=== PATIENT | male | born 1965 | race Caucasian/White ===

== ENCOUNTER 2021-09-24 12:34 | Emergency (ER) | payer BC ==
[2021-09-24] VITALS (10 sets, daily range): BP systolic 135–159; BP diastolic 93–109
[~2021-09-24] VITALS: Ht 172.7 cm; Wt 100.0 kg
[~2021-09-24 12:34] MED LIST: BLOOD PRESSURE; EFFEXOR; NEXIUM20 M1 PO
[2021-09-24 14:07] LABS: HEMATOCRIT 31.7 % (39.0-50.0); HEMOGLOBIN 9.2 g/dl (14.0-18.0); IMMATURE GRANULOCYTES 0.3 % (0.0-5.0); MEAN CORPUSCULAR HGB 20.9 pG CALC (26.0-32.0); NEUT# 8.72 thou/uL (1.82-7.42); RED BLOOD COUNT 4.4 mill/uL (4.70-6.10); RED CELL DISTRI WIDTH 16.8 % (11.5-15.5)
[2021-09-24 14:15] LABS: ALBUMIN 3.4 g/dL (3.2-5.0); ALKALINE PHOSPHATASE 79 u/l (38-126); ANION GAP 16 (6-22 (CALC)); BILIRUBIN, TOTAL 0.5 mg/dL (0.0-1.4); BUN 11 mg/dL (9-20); BUN/CREATININE RATIO 15 (12-20 (CALC)); CARBON DIOXIDE 23 mmol/l (22-30); CHLORIDE 103 mmol/l (95-108); CREATININE 0.7 mg/dL (0.7-1.3); GFR > 60 ML/MIN (>=60 (CALC)); GFR FOR AFR.AMER. > 60 ML/MIN (>=60 (CALC)); SGOT/AST 110 u/l (17-59); SODIUM 137 mmol/l (137-146); TOTAL PROTEIN 6.4 g/dL (6.3-8.2)
[2021-09-24] MEDS ORDERED: XANAX0.25 MG PO (17:25)
== END 2021-09-24 17:57 | disposition home or self-care (01) | DRG 880 ==
LOC: ED 12:34
PROVIDERS: Emergency Medicine
DX: F41.9 Anxiety disorder, unspecified (principal); I10 Essential (primary) hypertension; K21.9 Gastro-esophageal reflux disease without esophagitis; F17.200 Nicotine dependence, unspecified, uncomplicated; Z86.16 Personal history of COVID-19

== ENCOUNTER 2023-10-01 08:20 | Observation (INO) | payer BC ==
[2023-10-01] VITALS (8 sets, daily range): BP systolic 108–133; BP diastolic 63–87
[~2023-10-01] VITALS: Ht 172.7 cm; Wt 99.8 kg
[~2023-10-01 08:20] MED LIST changes: +BAYER ASPIRIN E81 MG PO; +COZAAR25 MG PO; +EFFEXOR PO; +HCTZ PO; +OMEPRAZOLE DR40 MG PO; +SPIRONOLACT25 MG PO; +TOPROL XL25 M1 PO; +VIAGRA100 MG PO; +XANAX0.25 MG PO
[2023-10-01] MEDS ORDERED: LACTATED RINGER'S 1,000 ML IV ONE ×2 (08:48→12:36)
[2023-10-01] MEDS ORDERED: ceFAZolin Sodium 2 GM/VIAL SDV ONE (08:48)
[2023-10-01] MEDS ORDERED: SODIUM CHLORIDE 0.9% 100 ML IV ONE (08:48)
[2023-10-01] MEDS ORDERED: FAMOTIDINE 10MG/ML 2ML SDV IV ONE (08:48)
[2023-10-01] MEDS ORDERED: MIDAZOLAM HCL 2 MG/2 ML VIAL ONE (09:14)
[2023-10-01] MEDS ORDERED: PROPOFOL 200 MG/20 ML VIAL IV ONE (09:15)
[2023-10-01] MEDS ORDERED: ONDANSETRON HCl 4 MG/2 ML SDV IV ONE (09:15)
[2023-10-01] MEDS ORDERED: SUCCINYLCHOLINE CHLORIDE 20 MG/ML 10ML VIAL IV ONE (09:15)
[2023-10-01] MEDS ORDERED: GLYCOPYRROLATE 0.2 MG/ML IV ONE (09:15)
[2023-10-01] MEDS ORDERED: LIDOCAINE HCL 2% 2ML SDV IV ONE (09:15)
[2023-10-01] MEDS ORDERED: PHENYLEPHRINE HCL 10 MG/ML VIAL IV ONE (09:15)
[2023-10-01] MEDS ORDERED: KETOROLAC TROMETHAMINE 30 MG/ML SDV IV ONE (09:15)
[2023-10-01] MEDS ORDERED: ROCURONIUM BROMIDE 10 MG/ML 5ML VIAL IV ONE (09:15)
[2023-10-01] MEDS ORDERED: ePHEDrine SULFATE 50 MG/ML AMP IV ONE (09:15)
[2023-10-01] MEDS ORDERED: SUGAMMADEX SODIUM 200 MG/2 ML SDV IV ONE (09:15)
[2023-10-01] MEDS ORDERED: LIDOcaine HCl 1% (Local Anesth.) 20 ML VIAL ONE (09:41)
[2023-10-01] MEDS ORDERED: STERILE WATER FOR IRRIGATION 1,000 ML BTL IR ONE (09:43)
[2023-10-01] MEDS ORDERED: SODIUM CHLORIDE 1,000 ML BTL IR ONE (09:43)
[2023-10-01] MEDS ORDERED: oxyCODONE 5MG/ ACETAMINOPHEN 325MG TAB PO PRN (12:20)
[2023-10-01] MEDS ORDERED: HYDROmorphone HCL 2 MG/AMP IV PRN (12:20)
[2023-10-01] MEDS ORDERED: SIMETHICONE 20 MG/0.3 ML PO PRN (12:20)
[2023-10-01] MEDS ORDERED: DEXTROSE 5% w/NACL 0.45 1,000 ML IV PRN (12:20)
[2023-10-01] MEDS ORDERED: ONDANSETRON HCl 4 MG/2 ML SDV IV PRN (12:20)
--- NOTE | 2023-10-01 13:20 | NUR ---
PT ARRIVED FROM OR VIA STRETCHER WITH STAFF. IV INTACT, DRESSING INTACT, SMALL AMOUNT OF BLEEDING NOTED ON ABD DRESSING. PT IS ON 2 LITERS WITH NC.
[2023-10-01] MEDS ORDERED: LOSARTAN Potassium 25 MG/TAB PO SCH (13:30)
[2023-10-01] MEDS ORDERED: VENLAFAXINE HYDROCHLORIDE 75 MG/CAP PO SCH (13:30)
[2023-10-01] MEDS ORDERED: SPIRONOLACTONE 25 MG/TAB PO SCH (13:30)
[2023-10-01] MEDS ORDERED: hydroCHLOROthiazide 25 MG/TAB PO SCH (13:30)
[2023-10-01] MEDS ORDERED: METOPROLOL SUCCINATE 25 MG/TAB-TOPROL XL PO SCH (13:30)
--- NOTE | 2023-10-01 14:00 | NUR ---
DSPOKE WITH PT DAUGHTER TO GET HISTORY. PT IS AWAKE AND THEN DOSES BACK OFF AGAIN. HR IS REG,PULSES ARE STRONG. LIKE TO DO THINGS ON HIS OWN. CONTINUE TO OBSERVE AND MONITOR.
--- NOTE | 2023-10-01 16:00 | NUR ---
PT IS RESTING IN BED WITH NO DISTRESS NOTED. IV SITE IS FREE FROM REDNESS OR EDEMA.
[2023-10-01] MEDS ORDERED: KETOROLAC TROMETHAMINE 15 MG/ML SDV IV SCH (18:00)
--- NOTE | 2023-10-01 20:35 | NUR ---
PT IN BED WITH EYES CLOSED WITH NO S/S OF DISTRESS NOTED. RESPIRATION EVEN AND NON LABORED. NO BOWEL SOUNDS NOTD AND NO PASSING GAS. PT HAS NOT URINATED SINCE SURGERY DENIES DISCOMFORT. BLADDER ASSESSMENT COMPLETED AND NO DISTRESS AT THIS TIME. SCD ON AND TOLERATING WELL. MEDICATED WITH DILAUDID FOR PAIN AND HELPFUL. CALL LIGHT WITHIN REACH. WILL CONTINUE TO OBSERVE.
[2023-10-02] VITALS (13 sets, daily range): BP systolic 60–145; BP diastolic 35–76
--- NOTE | 2023-10-02 00:22 | NUR ---
PT HAS NOT VODED POST-OP. NEGATIVE BLADDER ASSESSMENT. STATES HE DOES NOT HAVE THE URGE TO URINATE. ATTEMPT TO REPOSITION TO ASSIST IN VOIDING AND DECLINED. BLADDER SCAN 507 ML. WILL NOTIFY MD FOR ORDERS. WILL CONTINUE TO OBSERVE. REFUSING TO KEEP SCD'S ON WELL. EXPLAINED TO PT THEY ARE IN PLACE TO PREVENT CLOTS AND HE STATED HE DID NOT WNAT THEM ON AT THIS TIME. WILL CONTINUE TO OBSERVE.
--- NOTE | 2023-10-02 01:14 | NUR ---
NOTIFIED SUPERVISIOR OF RESIDENT BLADDER SCAN RESULTS AND ALSO DECLINING TO AMBULATE OR POSITION CHANGE FOR ASSIST WITH URINATION. PT IS DENYING COMPLICATIONS AND DENYING PAIN. WILL CONTINUE TO OBSERVE FOR URINATION AND WILL NOTIFY MD OF PT DOES NOT VOID.
--- NOTE | 2023-10-02 04:47 | NUR ---
THIS PRODUCT INSPECTION COORDINATOR WENT INTO PT ROOM TO EVALUATE PAIN AND EVALUATE BLADDER AND VOIDING. WOKE THIS RESIDENT UP AND ASKED ABOUT PAIN AND HE STATED HE WAS IN PAIN AT A 8 ON SCALE OF 1 TO 10. CHECKED PATIENT VITALS AND BLOOD PRESSURE 84/55 IN LEFT ARM AND 82/42 IN RIGHT ARM. MADE PT AWARE THAT I NEEDED TO CALL THE PHYSICIAN REGARDING THE BLOOD PRESSURE BEFORE MEDICATING HIM FOR PAIN. PT BECAME UPSET SAYING THAT HE HAS BEEN CALLING FOR PAIN MEDICATIONS SINCE MIDNIGHT. EXPLAINED TO PATIENT THAT I GAVE HIM TORADOL PRESCRIBED AND i DID TELL HIM TO CALL IF IT WAS NOT EFFECTIVE. BOLUS WAS ADMINISTERED AND WHILE RUNNING CHECK BLOOD PRESSURE AT 108/52. DILAUDID WAS ADMINISTERED PRESCRIBED. WILL CONTINUE TO OBSERVE. SPOKE WITH DAUGHTER AND MADE AWARE OF PLAN OF CARE.
--- NOTE | 2023-10-02 04:55 | NUR ---
THIS TEST MAN INTO SPEAK WITH PT (AT THE NURSES REQUEST R/T PT ANGRILY STATING TO HER THAT SHE IS PAYING GAMES WITH HIM AND REFUSING TO GIVE PAIN MEDICATION) WHO IS UPSET STATING WE HAVE REFUSED TO GIVE HIM PAIN MEDICATION SINCE 8PM LAST NIGHT, PT STATES WE ARE PLAYING GAMES WITH HIM ETC.. ATTEMPTS BY THIS TEST MAN AND HIS NURSE TO EXPLAIN TO HIM THAT HE WAS MEDICATED AT 0010 ORDERED WITH TORADOL, PT NOW STATES "THAT IS NOT PAIN MEDICATION THAT IS AN ANTI INFLAMATORY, I WANT THE PAIN MEDICATION" AGAIN ATTEMPTED TO EXPLAIN THAT TORADOL IS GIVEN FOR PAIN, PT ANGRILY INTERJECTS THAT "THAT ISN'T PAIN MEDICATION AND AGAIN TELLS US THAT TORADOL IS NOT A PAIN MEDICATION THAT IT IS IN AN ANTI-INFAMMATORY, ATTEMPTED TO EXPLAIN THAT TORADOL IS GIVEN FOR PAIN BUT THAT IT DOESN'T CLINICALLY AFFECT HIS B/P LIKE THE DILAUDID WILL, ALL EFFORTS TO DISCUSS AND EXPLAIN CLINICALLY ABOUT NARCOTICS AND LOW B/P GO UNHEARD PT JUST REPEATEDLY STATES HE DOESN'T UNDERSTAND WHY WE ARE REFUSING TO GIVE HIM PAIN MEDICATION". PT THEN STATES "THATS OK WHEN MY DAUGHTER GETS HERE, THINGS WILL CHANGE SHE WILL RAISE THE ROOF" UNABLE TO COMMUNICATE EFFECTIVELY WITH PT, SO NURSE EXPLAINED THAT WE WILL GIVE HIM A BOLUS OF FLUID AND CHECK B/P TO BE ABLE TO ENSURE WE CAN SAFELY ADMINISTER PAIN MEDICATION.
--- NOTE | 2023-10-02 05:12 | NUR ---
ALSO ATTEMPTING TO ASSDESS BLADDER AND TOILET TO URINATE AND PT STATED ONE THING AT A TIME. i EXPLAINED THAT i NEEDED TO ADDRESSTHE CONCERN OF NOT VOIDING. dR. OLMSTEAD WAS MADE AWARE OF PATIENT NOT VOIDING SINCE SURGERY. dECLINED BLADDER SCAN AT THIS TIME STATED HE NEEDED TO DEAL WITH HIS PAIN FIRST. EXPLAINED TO PT THAT DILAUDID WAS GIVEN. WILL CONTINUE TO OBSERVE
--- NOTE | 2023-10-02 05:54 | NUR ---
Recheck blood pressure after administration of diludid and tech bp 60/35. this ad copy writer rechecked bp and 84/44 and 87/35. Dr. Lee was notified and awaiting orders.
[2023-10-02] MEDS ORDERED: SODIUM CHLORIDE 0.9% 1,000 ML IV ONE ×2 (06:00→06:30)
--- NOTE | 2023-10-02 06:00 | NUR ---
Dr. galo gave order to gove 2nd liter bolus and order faxed and noted and bolus given. BP 86/83.
--- NOTE | 2023-10-02 06:16 | NUR ---
DR. VAZQUEZ MADE AWARE OF LOW BLOOD PRESSURES AND ORDERS TO CONTINUE WITH D51/2 NS AT 100 AND HOLD BLOOD PRESSURE MEDICATIONS THIS AM. PATIENT MADE AWARE OF PLAN OF CARE.
[2023-10-02 06:31] LABS: BASO% 0.5 % (0-3); EOS% 4.9 % (0-8); HEMATOCRIT 36.6 % (39.0-50.0); IMMATURE GRANULOCYTES 0.3 % (0.0-5.0); LYMPH% 22.7 % (15-41); MEAN CORPUSCULAR HGB 28.1 pG CALC (26.0-32.0); MEAN CORPUSCULAR HGB CONC 31.1 g/dL CAL (32.0-36.0); MONO% 11.8 % (2-13); NEUT# 4.42 thou/uL (1.82-7.42); NEUT% 59.8 % (42-76); RED BLOOD COUNT 4.06 mill/uL (4.70-6.10); RED CELL DISTRI WIDTH 15.3 % (11.5-15.5)
[2023-10-02 06:37] LABS: HEMOGLOBIN 11.4 g/dl (14.0-18.0); MEAN CELL VOLUME 90.1 fL CALC (80.0-100.0)
[2023-10-02 06:49] LABS: ALBUMIN 3.3 g/dL (3.2-5.0); ALKALINE PHOSPHATASE 51 u/l (38-126); BUN 16 mg/dL (9-20); BUN/CREATININE RATIO 16 (12-20 (CALC)); CHLORIDE 102 mmol/l (95-108); GFR FOR AFR.AMER. > 60 ML/MIN (>=60 (CALC)); GFR OTHER RACES > 60 ML/MIN (>=60 (CALC)); POTASSIUM 4.2 mmol/l (3.5-5.1); SGOT/AST 28 u/l (17-59); SODIUM 137 mmol/l (137-146); TOTAL PROTEIN 5.7 g/dL (6.3-8.2)
--- NOTE | 2023-10-02 06:56 | NUR ---
PT AMBULATED TO THE TOILET AND VOIDED. RECHECKED BP 102/62 HR 55. PT REQUESTING THE DILUADID FOR PAIN. EXPLAINED TO THE PATIENT THAT BOLUS IS CONTINUING TO RUN. I ATTEMPTED TO GIVE TORADOL AND PT REFUSED. OFFERED OXYCODONE PO AND REEFUSED.
[2023-10-02 07:00] LABS: ANION GAP 5 (6-22 (CALC)); CARBON DIOXIDE 34 mmol/l (22-30)
--- NOTE | 2023-10-02 07:10 | NUR ---
Manual blood pressure 102/60. pt asked to recheck bp with automatic blood pressure cuff and 96/52. Dr. Gomes was called regarding pain medication and blood pressures to clarify if medication can be administer with blood pressures dropping after administration and he stated to give Dilaudid 0.25ml x 1. Faxed to pharmacy.
--- NOTE | 2023-10-02 08:09 | NUR ---
pt did ambulate to the toilet and stated he voided without complications. Bolus completed x 2 and bp rechecked and 145/55. prescribed dilaudid 0.5mg was given. will continue to observe
--- NOTE | 2023-10-02 08:23 | NUR ---
RECEIVED REPORT FROM NIGHTSHIFT NURSE, PT NOTED SITTING UP ON SIDE OF BED, BP WNL AT THIS TIME AND PT RECEIVED MEDICAITON FOR PAIN PER EMAR, HELD X1 NOW DOSE OF DILAUDID PER PHYSICIANS ORDER. REPOSITIONED PT IN BED AND APPLIED SCD'S, ASSESSED PT SURGICAL INCISIONS, ALL APPEAR CDI. BOWEL SOUNDS ACTIVE AT THIS TIME PT DENIED ANY FLATULENTS AT THIS TIME BUT DID CONFIRM ABILITY TO VOID WITH NO PROBLEMS. EDUCATED PT ON PLAN OF CARE AND MED SCHEDULE TODAY. EDUCATED PT ON IMPORTANCE OF AMBULATING POST OP. CALL LIGHT WITHIN REACH AND SAFETY PRECAUTIONS IN PLACE.
[2023-10-02] MEDS ORDERED: HYDROmorphone HCL 2 MG/AMP IV SCH (08:30)
--- NOTE | 2023-10-02 10:52 | NUR ---
ASSISTED PT WITH GETTING OUT OF BED, EDUCATED ON USING PILLOW TO BIND ABD WHEN SITTING UP. PT ABLE TO AMBULATE UP AND DOWN HALLWAY X1 WITH STEADY GAIT AND MINIMAL PAIN. PT DID START BLECHING, EDUCATED ON NORMAL SIDE EFFECTS POST OP. PT AMBULATED BACK INTO ROOM AND SAT UP CHAIR HIGH FWOLERS. S/O AT BEDSIDE. CALL LIGHT WITHIN REACH AND SAFETY PRECAUTIONS IN PLACE.
--- NOTE | 2023-10-02 17:02 | NUR ---
pt was asked if he had been using urinal for intake and output. pt stated " I dont know what that is. Pt also stated " I have been using the toliet." Also asked pt how many times has he voided pt stated 4 times today.
--- NOTE | 2023-10-02 19:03 | NUR ---
SPOKE WITH PT AND PT DAUGHTER, EDUCATED PT AND PT DAUGHTER ON PT PAIN MEDICATION MED SCHEDULE, MEDICATION PERAMETERS, AND DR RECOMMENDATIONS. PT DID RECEIVED MEDICAITON PER EMAR FOR PAIN, PT LAYING IN BED SEMI FOWELRS AT THIS TIME. CALL LIGHT WITHIN REACH AND SAFETY PRECAUTIONS IN PLACE.
--- NOTE | 2023-10-02 20:48 | NUR ---
PATIENT'S NURSE STILL WORKING ON HER LOG ON PASSWORD, PATIENT C/O PAIN, NURSE REQUESTED BASKET HAND WEAVER TO MEDICATE PATIENT, BP WITHIN NORMAL RANGE IV DILAUDID GIVEN, PATIENT MADE AWARE THAT HE IS GETTING DILAUDID AT THAT TIME.
--- NOTE | 2023-10-02 23:45 | NUR ---
CALLED BY STAFF TO ROOM 278 BECAUSE WAS CUSSING OUT SHIPPING COORDINATOR. TELLING THEM TO DO THEIR JOBS...AND MEDICATE HER . PT WAS SITTING UP IN CHAIR REQUESTING DILAUDID. STATES HE IS TO GET IT EVERY 2 HOURS. DISCUSSED WITH STAFF AND THEY SAID THAT PT HAD BEEN MEDICATED WITH DILAUDID AT APPROX 2047. OFFERED HIM A PAIN PILL NURSE LUCIO SAID THAT THE DOCTOR WANTED PT TO TAKE PAIN PILL FIRST AND THEN GIVE IV PAIN MED IF THAT WAS NOT ENOUGH RELIEF. PT AND BOTH UPSET BECAUSE I OFFERED PAIN PILL INSTEAD AND WHEN I MENTIONED THE HYPOTENSION AFTER THE DILAUDID EARLIER IN THE DAY THEY BOTH CONTINUED TO GET BELIGERENT. THE PT SAID THAT THE DR TOLD HIM HE COULD HAVE THE IV DILAUDID EVERY 2 HOURS FOR 48 HOURS AND THAT WOULD NOT BE UNTIL MORNING. PT REFUSED PAIN PILL. DILAUDID GIVEN. STATE THAT NOONE WOULD ANSWER HIS CALL LIGHT. STAFF STATES THAT HE WAS IN BED SLEEPING UNTIL ARRIVED. STATES THAT PT WAS INCONTINET IN BED AND HE CALLED HER AT HOME TO COME CLEAN HIM UP. STAFF STATES THAT HE DID NOT RING CALL LIGHT. CONTINUES TO CUSS AND YELL. ASKED TO HER STOP CUSSING AND SHE SAID SHE WASN'T TALKING TO ME...??? ALSO ASKED TO TO STOP YELLING OTHER PT'S ARE TRYING TO SLEEP AND SHE TOLD ME I WAS THE ONE HOLDING THE DOOR OPEN. ASKED HER TO STOP CUSSING AND YELLING OR SHE WOULD HAVE TO LEAVE... CONTINUED SO I CALLED SECURITY AND WHEN SECURITY ARRIVED SHE LEFT STATING THAT WHEN DEYA GETS HERE SHE WILL BE WORSE. (APPARENTLY DEYA IS THE PT'S DAUGHTER) I ADVISED THERE WOULD BE NO VISITORS VISITING HOURS WERE OVER. WHILE ALL OF THE WAS TAKING PLACE, THE SHIPPING COORDINATOR CHECKED THE BP 121/58. DILAUDID 1 MG GIVEN. PT ADVISED NOT TO GET UP WITHOUT CALLING AND CALL LIGHT IN REACH. DAUGHTER THEN CALLED PT AND PT TALKING WITH HER.
[2023-10-03 00:31] VITALS: BP 100/47
[2023-10-03 02:59] VITALS: BP 117/49
[2023-10-03 03:00] VITALS: BP 120/63
--- NOTE | 2023-10-03 03:10 | NUR ---
PATIENT C/O PAIN ABDOMEN PATIENT BP CHECKED PRIOR TO MEDICATION, IV DILAUDID GIVEN.PATINET AWARE WHAT MEDICATION IS BEING GIVEN. NO COMPLAINTS AT THIS TIME.
[2023-10-03 05:11] VITALS: BP 99/49
--- NOTE | 2023-10-03 06:37 | NUR ---
Patient is sleeping during pain medication administration. Patient is also noted to be very rude, disrespectful, and beligerent with staff. Patient is calling people disrespectufl names. The patients was noted to get in the face of the instrument technician helper Ashish and told her, "To do her damn job." The house superivor Monet was called and she spoke to the patient and his family in which she became beligerent with her and had to be escorted out by Security. The patients daughter Li also calls on the phone being rude and disrepectful as well. The resident was told that when his blood pressure is below 100 SBP that he can not recieve his dialudid and he begins to swear at staff. The resident is also noted to stiffen up during taking his blood pressure in hopes of increasing the results. The resident was noted to follow staff around demanding pain medication outside of his room. He was noted to be following the nursing staff and the instrument technician helper's around the unit. I told the patient on several occasions that I do not tolerate disrespect of calling names, swearing, and making demands regardless of his blood pressure. The resident also refuses to take po percocet after being told he is to try po medication as he will be discharged home on it. He doesnt want to attempt percocet on take dilaudid and toradol together.
[2023-10-03 06:48] VITALS: BP 140/69
--- NOTE | 2023-10-03 07:47 | NUR ---
The patients daughter called during the time that two house supervisors and myself were discussing the patients blood pressure dropping and the reason why dilaudid has to be delayed. She was told that a meeting was taking place and refused to respect what was being told to her. She continued to ask about her fathers last pain medication administeration and was told again that a discussion was taking place with her dad and she could call back or ask him afterwards. Dr. Lee was called this am and notified of the patients and his family behavior towards staff. I explained that pain medication administration was not an issue unless concern for hypotension was noted. The patient has previously received fluid boluses 2 liters to bring his blood pressure up from recieving pain medication. The patient is also noted to sleep past the two hour time frame and the dilaudid is an as needed medication. The patient and family continues to say its been 1.5 hours or 3 hours but if the patient is asleep or his blood pressure is to low the dilaudid will be given when his is not at risk. NO further comments at this time.
--- NOTE | 2023-10-03 08:00 | NUR ---
BEDSIDE SHIFT REPORT COMPLETED. REQUESTING IV DILAUDID. STATES PAIN 05/19. OFFERED TO TRY PO MEDICATION FIRST, EXPLAINING PO LAST LONGER THAN IV. PATIENT LOOKED AT DAUGHTER STATED,"SEE, I TOLD YOU." ATTEMPTED TO DISCUSS PLAN OF CARE FOR THE DAY WITH DAUGHTER AND PATIENT. PATIENT ROLLED HIS EYES, STATING, ALL I NEED IN THE PAIN MEDICATION. DILAUDID IV GIVEN ORDERED. PATIENT THEN STATED, "WILL YOU BE HERE IN 2 HOURS OR DO I HAVE TO CALL YOU AGAIN." EXPRESSED TO PATIENT THAT THE MEDICATION IS NEEDED, I WOULD BE BACK TO REASSESS HIS PAIN. PATIENT STATED,"MY DOCTOR SAYS I CAN HAVE IT EVERY 2 HOURS I WANT IT EVERY 2 HOURS." JESSICA VERDUZCO AND MADELEINE HELD DUE TO B/P RUNNING LOW. ENCOURAGED TO AMBULATE AROUND UNIT AND OR ROOM.
[2023-10-03] MEDS ORDERED: PERCOCET 5/325M1 TAB PO (11:01)
[2023-10-03] MEDS ORDERED: PERCOCET 5/321 COMBO PO (15:16)
== END 2023-10-03 16:05 | disposition home or self-care (01) | DRG 331 ==
LOC: ORM 08:20 → MS2 13:07
PROVIDERS: ADMIT Surgery; ATTEND Surgery
PROC: 0WUF0JZ Supplement Abdominal Wall with Synthetic Substitute, Open Approach (ICD-10-PCS; principal; 2023-10-01)
PROC: 0WJF4ZZ Inspection of Abdominal Wall, Percutaneous Endoscopic Approach (ICD-10-PCS; 2023-10-01)
PROC: 0DQ80ZZ Repair Small Intestine, Open Approach (ICD-10-PCS; 2023-10-01)
PROC: 0DN80ZZ Release Small Intestine, Open Approach (ICD-10-PCS; 2023-10-01)
DX: K43.2 Incisional hernia without obstruction or gangrene (principal); K66.0 Peritoneal adhesions (postprocedural) (postinfection); Z20.822 Contact with and (suspected) exposure to COVID-19
CPT/HCPCS: C1781; J0690

== ENCOUNTER 2023-10-09 18:28 | Observation (INO) | payer BC ==
[~2023-10-09] VITALS: Ht 172.7 cm; Wt 105.2 kg
[~2023-10-09 18:28] MED LIST changes: +PERCOCET 5/321 COMBO PO; +PERCOCET 5/325M1 TAB PO
[2023-10-09 18:57] VITALS: BP 141/94
[2023-10-09] MEDS ORDERED: CLARIFY DOSE PO PRN (19:10)
[2023-10-09 19:31] LABS: BASO% 0.4 % (0-3); HEMATOCRIT 36.9 % (39.0-50.0); HEMOGLOBIN 12.1 g/dl (14.0-18.0); IMMATURE GRANULOCYTES 0.3 % (0.0-5.0); LYMPH% 17.7 % (15-41); MEAN CELL VOLUME 87.6 fL CALC (80.0-100.0); MEAN CORPUSCULAR HGB 28.7 pG CALC (26.0-32.0); MEAN CORPUSCULAR HGB CONC 32.8 g/dL CAL (32.0-36.0); MONO% 10.3 % (2-13); NEUT# 6.61 thou/uL (1.82-7.42); NEUT% 63.3 % (42-76); RED BLOOD COUNT 4.21 mill/uL (4.70-6.10); RED CELL DISTRI WIDTH 14.1 % (11.5-15.5)
[2023-10-09] MEDS ORDERED: LASIX 40 MG TAB40 MG PO (19:36)
[2023-10-09 19:37] VITALS: BP 141/94
[2023-10-09 19:47] LABS: ANION GAP 9 (6-22 (CALC)); BUN 13 mg/dL (9-20); BUN/CREATININE RATIO 15 (12-20 (CALC)); CARBON DIOXIDE 30 mmol/l (22-30); CHLORIDE 105 mmol/l (95-108); CREATININE 0.9 mg/dL (0.7-1.3); GFR FOR AFR.AMER. > 60 ML/MIN (>=60 (CALC)); GFR OTHER RACES > 60 ML/MIN (>=60 (CALC)); SODIUM 140 mmol/l (137-146)
[2023-10-09] MEDS ORDERED: KETOROLAC TROMETHAMINE 15 MG/ML SDV IV SCH (19:57)
[2023-10-09] MEDS ORDERED: HYDROmorphone HCL 2 MG/AMP IV PRN (20:00)
[2023-10-09] MEDS ORDERED: DEXTROSE 5% w/NACL 0.45 1,000 ML IV PRN ×2 (20:00→21:05)
[2023-10-09] MEDS ORDERED: oxyCODONE 5MG/ ACETAMINOPHEN 325MG TAB PO PRN (20:00)
[2023-10-09] MEDS ORDERED: ONDANSETRON HCl 4 MG/2 ML SDV IV PRN (20:05)
[2023-10-09] MEDS ORDERED: [UNRECOGNIZED DRUG - REMARK] PO PRN (20:05)
[2023-10-09] MEDS ORDERED: DiphenhydrAMINE HCL 50 MG/ML SDV IV PRN (21:00)
[2023-10-09] MEDS ORDERED: ENOXAPARIN SODIUM 40 MG/0.4 ML SYR SC SCH (21:00)
[2023-10-09 23:23] VITALS: BP 124/64
[2023-10-10 04:31] VITALS: BP 131/78
[2023-10-10 04:49] VITALS: BP 131/78
[2023-10-10 07:13] VITALS: BP 98/59
[2023-10-10] MEDS ORDERED: PROMETHAZINE HCL 25 MG/ML AMP IV PRN (07:55)
[2023-10-10] MEDS ORDERED: LOSARTAN Potassium 25 MG/TAB PO SCH (09:00)
[2023-10-10] MEDS ORDERED: PANTOPRAZOLE SODIUM Sesquihydr 40 MG/TAB PO SCH (09:00)
[2023-10-10] MEDS ORDERED: VENLAFAXINE HYDROCHLORIDE 75 MG/CAP PO SCH (09:00)
[2023-10-10] MEDS ORDERED: METOPROLOL SUCCINATE 25 MG/TAB-TOPROL XL PO SCH (09:00)
[2023-10-10] MEDS ORDERED: SPIRONOLACTONE 25 MG/TAB PO SCH (09:00)
[2023-10-10] MEDS ORDERED: ASPIRIN EC 81 MG/TAB PO SCH (09:00)
[2023-10-10] MEDS ORDERED: FUROSEMIDE 40 MG/TAB PO SCH (09:00)
[2023-10-10] MEDS ORDERED: [UNRECOGNIZED DRUG - OTHER] TOP PRN (11:00)
[2023-10-10] MEDS ORDERED: [UNRECOGNIZED DRUG - OTHER] TOP SCH (11:00)
[2023-10-10] MEDS ORDERED: PIPERACILLIN Sodium-Tazobactam 3.375 GM in SODIUM CHLORIDE 0.9% 100 ML IV SCH ×2 (12:00)
[2023-10-10] MEDS ORDERED: FUROSEMIDE 40 MG/4 ML SDV IV SCH ×2 (12:30→17:34)
[2023-10-10] MEDS ORDERED: Hydrocortisone 2.5% Cream 30 GM Tube TOP PRN (14:05)
[2023-10-10] MEDS ORDERED: [UNRECOGNIZED DRUG - OTHER] TOP PRN (14:10)
[2023-10-10] MEDS ORDERED: DIPHENHYDRAMINE HCL TOP PRN (14:10)
[2023-10-10] MEDS ORDERED: PERMETHRIN TOP SCH (14:30)
[2023-10-10 16:00] VITALS: BP 115/71
[2023-10-10 20:39] VITALS: BP 106/58
[2023-10-11 04:27] VITALS: BP 105/57
[2023-10-11 05:55] LABS: BASO% 0.5 % (0-3); EOS% 11.5 % (0-8); HEMATOCRIT 36.8 % (39.0-50.0); HEMOGLOBIN 11.8 g/dl (14.0-18.0); IMMATURE GRANULOCYTES 0.6 % (0.0-5.0); LYMPH% 17.9 % (15-41); MEAN CELL VOLUME 90.9 fL CALC (80.0-100.0); MEAN CORPUSCULAR HGB 29.1 pG CALC (26.0-32.0); MEAN CORPUSCULAR HGB CONC 32.1 g/dL CAL (32.0-36.0); MONO% 9.4 % (2-13); NEUT# 5.15 thou/uL (1.82-7.42); NEUT% 60.1 % (42-76); RED BLOOD COUNT 4.05 mill/uL (4.70-6.10); RED CELL DISTRI WIDTH 14.5 % (11.5-15.5)
[2023-10-11 06:10] LABS: CREATININE 1.5 mg/dL (0.7-1.3); POTASSIUM 4.3 mmol/l (3.5-5.1)
[2023-10-11 07:30] VITALS: BP 93/54
[2023-10-11 07:40] VITALS: BP 93/54
[2023-10-11] MEDS ORDERED: FUROSEMIDE 40 MG/4 ML SDV IV SCH (14:00)
[2023-10-11 15:42] VITALS: BP 104/53
[2023-10-11 15:58] VITALS: BP 104/53
[2023-10-11] MEDS ORDERED: hydrOXYzine HCL 25 MG/TAB PO PRN (17:25)
[2023-10-11 20:00] VITALS: BP 134/77
[2023-10-12 04:28] VITALS: BP 112/63
[2023-10-12 08:18] VITALS: BP 109/63
[2023-10-12] MEDS ORDERED: hydrOXYzine HCL 25 MG/TAB PO PRN (09:00)
[2023-10-12 09:48] LABS: ALBUMIN 3.4 g/dL (3.2-5.0); ALKALINE PHOSPHATASE 59 u/l (38-126); ANION GAP 8 (6-22 (CALC)); BUN 16 mg/dL (9-20); BUN/CREATININE RATIO 15 (12-20 (CALC)); CARBON DIOXIDE 33 mmol/l (22-30); CHLORIDE 101 mmol/l (95-108); CREATININE 1.1 mg/dL (0.7-1.3); GFR FOR AFR.AMER. > 60 ML/MIN (>=60 (CALC)); GFR OTHER RACES > 60 ML/MIN (>=60 (CALC)); POTASSIUM 3.7 mmol/l (3.5-5.1); SGOT/AST 23 u/l (17-59); SODIUM 139 mmol/l (137-146)
[2023-10-12 09:51] LABS: BILIRUBIN, TOTAL 0.2 mg/dL (0.2-1.3)
[2023-10-12 10:44] VITALS: BP 117/74
[2023-10-12] MEDS ORDERED: AMOX/K CLAV875 M1 PO (14:18)
== END 2023-10-12 18:51 | disposition home or self-care (01) | DRG 862 ==
LOC: MS2 18:28
PROVIDERS: Nurse Practitioner Family; ADMIT Surgery; ATTEND Surgery
DX: T81.41XA Infection following a procedure, superficial incisional surgical site, initial encounter (principal); I50.23 Acute on chronic systolic (congestive) heart failure; L03.311 Cellulitis of abdominal wall; T81.31XA Disruption of external operation (surgical) wound, not elsewhere classified, initial encounter; I11.0 Hypertensive heart disease with heart failure; B88.0 Other acariasis; I25.10 Atherosclerotic heart disease of native coronary artery without angina pectoris; F41.9 Anxiety disorder, unspecified; Y83.8 Other surgical procedures as the cause of abnormal reaction of the patient, or of later complication, without mention of misadventure at the time of the procedure; Z86.16 Personal history of COVID-19
CPT/HCPCS: G0378; G0379; J1650